=== PATIENT | female | born 1960 | race Caucasian/White ===

== ENCOUNTER 2022-07-19 10:36 | Emergency (ER) | payer SELFPAY ==
[~2022-07-19] VITALS: Ht 165.1 cm; Wt 82.0 kg
[2022-07-19 10:47] VITALS: BP 168/110
== END 2022-07-19 17:09 | disposition home or self-care (01) ==
LOC: ER 10:36
DX: N64.4 Mastodynia (principal); I10 Essential (primary) hypertension; E78.00 Pure hypercholesterolemia, unspecified; M19.90 Unspecified osteoarthritis, unspecified site
CPT/HCPCS: 76642; 99284

== ENCOUNTER 2022-08-26 11:16 | Emergency (ER) | payer MEDICAID ==
[~2022-08-26] VITALS: Ht 167.6 cm; Wt 79.0 kg
[2022-08-26 11:23] VITALS: BP 151/86
[2022-08-26] MEDS ORDERED: LOSA100T32 MT (12:47)
[2022-08-26] MEDS ORDERED: AMLO5TAB88 MT (12:47)
[2022-08-26] MEDS ORDERED: ATOR20TA65 MT (12:47)
== END 2022-08-26 12:59 | disposition home or self-care (01) ==
LOC: ER 11:16
DX: Z76.0 Encounter for issue of repeat prescription (principal); I10 Essential (primary) hypertension; E78.00 Pure hypercholesterolemia, unspecified; M19.90 Unspecified osteoarthritis, unspecified site
CPT/HCPCS: 99281

== ENCOUNTER 2022-09-06 11:09 | Emergency (ER) | payer MEDICAID ==
[~2022-09-06] VITALS: Ht 165.1 cm; Wt 87.0 kg
[~2022-09-06 11:09] MED LIST: AMLO5TAB88 MT; ATOR20TA65 MT; LOSA100T32 MT
[2022-09-06 11:14] VITALS: BP 183/87
[2022-09-06] MEDS ORDERED: NAPR-1176 MT (13:47)
== END 2022-09-06 14:10 | disposition home or self-care (01) ==
LOC: ER 11:09
DX: M25.461 Effusion, right knee (principal); E78.00 Pure hypercholesterolemia, unspecified; I10 Essential (primary) hypertension; Z79.899 Other long term (current) drug therapy
CPT/HCPCS: 99281